=== PATIENT | male | born 1965 | race Two or more races ===

== ENCOUNTER 2023-12-04 09:19 | Inpatient (IN) | payer OTHER ==
[~2023-12-04] VITALS: Ht 180.3 cm; Wt 76.8 kg
[2023-12-04] MEDS: SODIUM CHLORIDE 0.9% 1,000 ML IV ONE ×2 (09:45→11:29)
[2023-12-04 10:01] LABS: Basophils # (auto) 0.1 10 ^3/uL (0-0.2); Basophils % (auto) 1.3 % (0.0-2.0); Eosinophils # (auto) 0.1 10 ^3/uL (0-0.8); Hematocrit 43.6 % (41.0-53.0); Hemoglobin 14.4 g/dL (13.5-17.5); Lymphocytes # (auto) 1.6 10 ^3/uL (0.4-5.4); Mean Corpuscular Volume 97.2 fL (80.0-100.0); Monocytes # (auto) 0.4 10 ^3/uL (0-1.3); Monocytes % (auto) 7.7 % (0.0-12.0); Neutrophils # (auto) 3.1 10 ^3/uL (1.6-8.6); Nucleated Red Blood Cells % 0.1 %; Platelet Count (auto) 187 10^3/uL (140-450); Red Blood Cells 4.49 10^6/uL (4.5-5.90); Red Cell Distribution Width 14.2 % (11.8-14.3); White Blood Cell 5.3 10^3/uL (4.4-10.8)
[2023-12-04 10:34] LABS: Chloride 110 mmol/L (98-107); Potassium 3.5 mmol/L (3.5-5.1); Sodium 140 mmol/L (136-145)
[2023-12-04 10:35] LABS: Anion Gap 5 (5-15); Calcium 8.3 mg/dL (8.7-10.4); Carbon Dioxide 25 mmol/L (20-30)
[2023-12-04 10:40] LABS: Blood Urea Nitrogen 10 mg/dL (9-23); Glucose 94 mg/dL (74-106)
[2023-12-04 10:41] LABS: Blood Alcohol < 3.0 mg/dL (<10)
[2023-12-04 11:07] VITALS: PULSE 68; RESP 18; O2SAT 97
[2023-12-04] MEDS: THIAMINE 100mg/ml INJ (200mg/2ml VIAL) IV ONE (11:20)
[2023-12-04] MEDS ORDERED: ONDANSETRON HCL 4 MG/2 ML VIAL IV PRN (14:45)
[2023-12-04] MEDS: NALOXONE HCL 1MG/ML 2ML SYRINGE IV ONE (14:51)
[2023-12-04] MEDS: NALOXONE HCL 1MG/ML 2ML SYRINGE ONE (14:56)
[2023-12-04] MEDS: hydrALAZINE HCL 20 MG/ML VL IV PRN (17:03)
[2023-12-04 17:11] LABS: Amphetamine Screen, Urine Pos (NEGATIVE); Barbiturate Scree,Urine Neg (NEGATIVE); Benzodiazephine Screen, Urine Neg (NEGATIVE); Cannabinoid Screen, Urine Neg (NEGATIVE); Cocaine Screen, Urine Neg (NEGATIVE); Opiate Scree,Urine Neg (NEGATIVE); Phencyclidine Screen, Urine Neg (NEGATIVE)
[2023-12-04 19:45] VITALS: PULSE 70; RESP 14; O2SAT 98
[2023-12-05] VITALS (7 sets, daily range): BP systolic 132–151; BP diastolic 77–92; PULSE 81–91; RESP 17–24; TEMP 97.9–98.8; O2SAT 95–96
[2023-12-05 04:10] LABS: Chloride 110 mmol/L (98-107); Potassium 3.2 mmol/L (3.5-5.1); Sodium 140 mmol/L (136-145)
[2023-12-05 04:11] LABS: Anion Gap 2 (5-15); Carbon Dioxide 28 mmol/L (20-30)
[2023-12-05 04:12] LABS: Calcium 8.4 mg/dL (8.7-10.4)
[2023-12-05 04:16] LABS: Glucose 102 mg/dL (74-106)
[2023-12-05 04:17] LABS: BUN/Creatinine Ratio 10.3 (10.0-20.0); Blood Urea Nitrogen 8 mg/dL (9-23)
[2023-12-05] MEDS: POTASSIUM CHL 20 Meq TABLET PO ONE (18:39)
[2023-12-06] VITALS (8 sets, daily range): BP systolic 131–159; BP diastolic 67–101; PULSE 67–81; RESP 14–19; TEMP 97.7–98.4; O2SAT 92–96
[2023-12-06 07:13] LABS: Basophils # (auto) 0 10 ^3/uL (0-0.2); Basophils % (auto) 0.7 % (0.0-2.0); Eosinophils # (auto) 0.1 10 ^3/uL (0-0.8); Eosinophils % (auto) 2.3 % (0.0-7.0); Hematocrit 39.7 % (41.0-53.0); Hemoglobin 13.6 g/dL (13.5-17.5); Lymphocytes # (auto) 1.7 10 ^3/uL (0.4-5.4); Lymphocytes % (auto) 32.5 % (10.0-50.0); Mean Corpuscular Hemoglobin 32.6 pg (28.0-32.0); Mean Corpuscular Hgb Conc. 34.3 g/dL (32.0-36.0); Mean Corpuscular Volume 95.1 fL (80.0-100.0); Monocytes # (auto) 0.3 10 ^3/uL (0-1.3); Monocytes % (auto) 6.5 % (0.0-12.0); Platelet Count (auto) 166 10^3/uL (140-450); Red Blood Cells 4.18 10^6/uL (4.5-5.90); Red Cell Distribution Width 13.8 % (11.8-14.3); White Blood Cell 5.2 10^3/uL (4.4-10.8)
[2023-12-06] MEDS: FAMOTIDINE 20 MG TAB PO ONE (17:02)
[2023-12-06] MEDS ORDERED: DOCUSATE SOD 100 MG CAP PO PRN (18:00)
[2023-12-06] MEDS ORDERED: LACTULOSE 20Gm/30ML SOLN PO PRN (18:00)
[2023-12-06] MEDS: FAMOTIDINE 20 MG TAB PO SCH (21:42)
[2023-12-07] VITALS (8 sets, daily range): BP systolic 138–155; BP diastolic 71–92; PULSE 67–88; RESP 18–61; TEMP 97.5–98.5; O2SAT 94–99
[2023-12-07] MEDS: DOXYCYCLINE 100 MG TAB/CAP PO ONE (09:09)
[2023-12-07] MEDS: DOXYCYCLINE 100 MG TAB/CAP PO SCH (09:19)
[2023-12-07 10:54] LABS: INR 1.02 (0.9-1.15); Prothrombin Time 10.8 sec (9.3-11.8)
[2023-12-07 15:06] LABS: Alanine Aminotransferase 43 U/L (7-40); Albumin 3.2 g/dL (3.2-4.8); Alkaline Phosphatase 85 U/L (46-116); Anion Gap 4 (5-15); Aspartate Aminotransferase 54 U/L (13-40); BUN/Creatinine Ratio 15.3 (10.0-20.0); Bilirubin, Total 0.4 mg/dL (0.2-1.0); Blood Urea Nitrogen 13 mg/dL (9-23); Carbon Dioxide 27 mmol/L (20-30); Chloride 108 mmol/L (98-107); Glucose 149 mg/dL (74-106); Potassium 3.9 mmol/L (3.5-5.1); Sodium 139 mmol/L (136-145); Total Protein 6.3 g/dL (5.7-8.2)
[2023-12-08 01:00] VITALS: BP 139/68; PULSE 74; RESP 18; TEMP 98.2; O2SAT 98
[2023-12-08 05:00] VITALS: BP 145/82; PULSE 64; RESP 16; TEMP 98.3; O2SAT 96
[2023-12-08 08:00] VITALS: PULSE 73; RESP 18; O2SAT 95
[2023-12-08] MEDS ORDERED: DOXY1CAP58 PO (09:11)
[2023-12-08 11:22] VITALS: BP 152/78; TEMP 36.8
[2023-12-10 09:57] LABS: Hepatitis B Core Total AB Negative (Negative)
[2023-12-10 11:52] LABS: Hepatitis A Total Antibody Positive (Negative)
[2023-12-10 11:53] LABS: Hepatitis B Surface Antibody Negative (Negative); Hepatitis B Surface Antigen Negative (Negative)
[2023-12-10 12:00] LABS: Hepatitis C Antibody Reactive (Negative)
== END 2023-12-08 13:00 | disposition home or self-care (01) | DRG 52 ==
LOC: EDBD 09:19 → ER 09:19 → OVERFLOW 14:44 → WEST WING 12-05 06:20 → CENTRAL 12-06 23:10
PROVIDERS: ADMIT Nurse Practitioner; ATTEND Family Medicine
DX: G92.8 Other toxic encephalopathy (principal); J15.212 Pneumonia due to Methicillin resistant Staphylococcus aureus; K74.60 Unspecified cirrhosis of liver; F15.10 Other stimulant abuse, uncomplicated; I10 Essential (primary) hypertension; T43.655A Adverse effect of methamphetamines, initial encounter; F17.210 Nicotine dependence, cigarettes, uncomplicated; K21.9 Gastro-esophageal reflux disease without esophagitis; Z59.00 Homelessness unspecified; Z79.899 Other long term (current) drug therapy; Y92.89 Other specified places as the place of occurrence of the external cause
CPT/HCPCS: 36415; 70450; 71045; 76705; 80048; 80053; 80307; 80320; 82140; 84132; 84484; 85025; 85610; 86704; 86706; 86708; 86803; 87081; 87340; 99291; G0378